=== PATIENT | female | born 1965 | race Caucasian/White ===

== ENCOUNTER → 2018-01-26 | Outpatient (CLI) | payer OTHER ==
[~2018-01-26] MED LIST: HYDR8TAB27 PO; MELO15TA24 PO; OXYC30TA66 PO; SUMA25TA4 PO; TOPI50TA8 PO
[2018-01-26 16:18] LABS: MICROSCOPIC AUTO
[2018-01-26 16:21] LABS: CULTURE INDICATED? YES
== END | disposition home or self-care (01) ==
LOC: STAR 15:20
PROVIDERS: ATTEND Orthopaedic Surgery
DX: Z01.818 Encounter for other preprocedural examination (principal); M16.11 Unilateral primary osteoarthritis, right hip
CPT/HCPCS: 81001; 87081; 87086

== ENCOUNTER 2018-02-03 05:52 | Inpatient (IN) | payer OTHER ==
[~2018-02-03] VITALS: Ht 167.6 cm; Wt 95.5 kg
[2018-02-03] MEDS ORDERED: KETOROLAC 60 MG/2 ML ONE (06:15)
[2018-02-03] MEDS ORDERED: VANCOMYCIN 1,000 MG ONE (06:15)
[2018-02-03] MEDS ORDERED: ROPIvacaine/PF 0.2%, 20 ML ONE (06:15)
[2018-02-03] MEDS ORDERED: SODIUM CHLORIDE 0.9% 100 ML ONE (06:15)
[2018-02-03] MEDS ORDERED: TRANEXAMIC ACID 100 MG/ML, 10ML ONE (06:15)
[2018-02-03] MEDS ORDERED: EPINEPHRINE 1 MG/ML, 1ML ONE (06:16)
[2018-02-03] MEDS ORDERED: LACTATED RINGERS 1,000 ML IV SCH (06:18)
[2018-02-03 06:19] VITALS: BP 114/78
[2018-02-03] MEDS ORDERED: MIDAZOLAM 1 MG/ML, 2ML ONE (06:32)
[2018-02-03] MEDS ORDERED: FENTANYL PF 250 MCG/5ML ONE (06:32)
[2018-02-03] MEDS ORDERED: OxyconTIN ER 10 MG TAB.ER PO ONE (07:00)
[2018-02-03] MEDS ORDERED: GABAPENTIN 300 MG CAPSULE PO ONE (07:00)
[2018-02-03] MEDS ORDERED: SCOPOLAMINE PATCH, 1.5MG PATCH.TD72 TD ONE (07:00)
[2018-02-03] MEDS ORDERED: ACETAMINOPHEN 500 MG TABLET PO ONE (07:00)
[2018-02-03] MEDS ORDERED: CEFAZOLIN 1,000 MG ONE (07:13)
[2018-02-03] MEDS ORDERED: SUCCINYLCHOLINE 20 MG/ML, 10ML ONE (07:13)
[2018-02-03] MEDS ORDERED: DEXAMETHASONE 4 MG/ML, 1ML ONE (07:13)
[2018-02-03] MEDS ORDERED: ONDANSETRON 2MG/ML, 2ML ONE (07:13)
[2018-02-03] MEDS ORDERED: PROPOFOL 10 MG/ML, 20ML ONE (07:13)
[2018-02-03] MEDS ORDERED: ROCURONIUM 10 MG/ML,10ML ONE (07:13)
[2018-02-03] MEDS ORDERED: hydrALAzine 20 MG/ML, 1ML IV PRN (08:00)
[2018-02-03] MEDS ORDERED: PROMETHAZINE 25 MG/ML, 1ML IV PRN (08:00)
[2018-02-03] MEDS ORDERED: METOCLOPRAMIDE 5 MG/ML, 2ML IV PRN (08:00)
[2018-02-03] MEDS ORDERED: OXYcodone 5 MG/5 ML ORAL.SOL UDC PO PRN (08:00)
[2018-02-03] MEDS ORDERED: LABETALOL 5MG/ML, 20ML IV PRN (08:00)
[2018-02-03] MEDS ORDERED: ALBUTEROL SULFATE 2.5 MG/3 ML NPPB PRN (08:00)
[2018-02-03] MEDS ORDERED: ONDANSETRON 2MG/ML, 2ML IVPush PRN (08:00)
[2018-02-03] MEDS ORDERED: HYDROmorphone 1 MG/ML, 1ML IV PRN (08:00)
[2018-02-03] MEDS ORDERED: MEPERIDINE/PF 25MG/0.5ML IVPush PRN (08:00)
[2018-02-03] MEDS ORDERED: KETOROLAC 30 MG/1 ML IV PRN (08:00)
[2018-02-03] MEDS ORDERED: ZOLPIDEM 5MG TABLET PO PRN (10:00)
[2018-02-03] MEDS ORDERED: ONDANSETRON 2MG/ML, 2ML IV PRN (10:00)
[2018-02-03] MEDS ORDERED: MAGNESIUM HYDROXIDE 8%, 30ML UDC PO PRN (10:00)
[2018-02-03] MEDS ORDERED: PROMETHAZINE 25 MG/ML, 1ML IM PRN (10:00)
[2018-02-03] MEDS ORDERED: ALUMINUM/MAG/SIMETHICONE 30 ML UDC PO PRN (10:00)
[2018-02-03] MEDS ORDERED: PROMETHAZINE 12.5 MG SUPP PR PRN ×2 (10:00→12:00)
[2018-02-03] MEDS ORDERED: ONDANSETRON 4 MG TABLET PO PRN (10:00)
[2018-02-03] MEDS ORDERED: SENNA/DOCUSATE TABLET PO PRN (10:00)
[2018-02-03] MEDS ORDERED: DIAZEPAM 5 MG TABLET PO PRN (10:00)
[2018-02-03] MEDS ORDERED: TRANEXAMIC ACID 1,000 MG in SODIUM CHLORIDE 0.9% 100 ML IVPB ONE (10:00)
[2018-02-03] MEDS ORDERED: BISACODYL 10 MG SUPP PR PRN (10:00)
[2018-02-03] MEDS ORDERED: DIPHENHYDRAMINE 50 MG CAPSULE PO PRN (10:00)
[2018-02-03] MEDS ORDERED: FENTANYL PF 100 MCG/2ML ONE (10:17)
[2018-02-03] MEDS: FENTANYL PF 100 MCG/2ML IV PRN ×2 (10:20→10:33)
[2018-02-03] MEDS ORDERED: OXYcodone 5 MG/5 ML ORAL.SOL UDC ONE (10:39)
[2018-02-03 11:15] VITALS: BP 113/70
[2018-02-03] MEDS ORDERED: HYDROmorphone 2 MG/ML, 1ML ONE ×2 (11:25→19:11)
[2018-02-03] MEDS: HYDROmorphone 1 MG/ML, 1ML IV PRN ×2 (11:30→19:14)
[2018-02-03] MEDS ORDERED: SUMATRIPTAN 25 MG TABLET PO PRN (12:00)
[2018-02-03] MEDS: D5%-0.45% NACL 1,000 ML IV SCH ×2 (12:34→21:02)
[2018-02-03] MEDS: TAMSULOSIN 0.4 MG CAP.ER.24H PO SCH (12:34)
[2018-02-03] MEDS: ACETAMINOPHEN 650 MG/20.3 ML UDC PO SCH ×2 (12:34→18:07)
[2018-02-03] MEDS: KETOROLAC 30 MG/1 ML IV SCH ×2 (12:34→18:07)
[2018-02-03 13:10] VITALS: BP 135/71
[2018-02-03] MEDS: OxyconTIN ER 15 MG TAB.ER PO SCH ×2 (15:31→23:00)
[2018-02-03] MEDS: CEFAZOLIN PMX 2GM/50ML 50 ML IVPB SCH ×2 (15:44→23:08)
[2018-02-03] MEDS: ASPIRIN 81 MG TABLET EC PO SCH (18:07)
[2018-02-03 20:05] VITALS: BP 99/61
[2018-02-03] MEDS ORDERED: TOPIRAMATE 25 MG TABLET PO SCH (21:00)
[2018-02-03] MEDS: DOCUSATE 100 MG CAPSULE PO SCH (21:01)
[2018-02-03] MEDS ORDERED: OxyconTIN ER 10 MG TAB.ER ONE (23:06)
[2018-02-03] MEDS ORDERED: OxyconTIN ER 20 MG TAB.ER ONE (23:07)
[2018-02-04 00:08] VITALS: BP 99/62
[2018-02-04] MEDS: ACETAMINOPHEN 650 MG/20.3 ML UDC PO SCH ×2 (00:13→05:26)
[2018-02-04] MEDS: KETOROLAC 30 MG/1 ML IV SCH ×2 (00:14→05:26)
[2018-02-04] MEDS: HYDROmorphone 2MG TABLET PO PRN ×2 (02:03→05:41)
[2018-02-04 03:05] VITALS: BP 98/60
[2018-02-04] MEDS: D5%-0.45% NACL 1,000 ML IV SCH (03:59)
[2018-02-04] MEDS: ASPIRIN 81 MG TABLET EC PO SCH (05:25)
[2018-02-04] MEDS ORDERED: DEXAMETHASONE 4 MG/ML, 1ML IVPush SCH (06:00)
[2018-02-04] MEDS: OxyconTIN ER 15 MG TAB.ER PO SCH (07:00)
[2018-02-04 07:10] VITALS: BP 92/55
[2018-02-04] MEDS ORDERED: OxyconTIN ER 10 MG TAB.ER ONE (07:12)
[2018-02-04] MEDS ORDERED: OxyconTIN ER 20 MG TAB.ER ONE (07:13)
[2018-02-04] MEDS: DOCUSATE 100 MG CAPSULE PO SCH (07:54)
[2018-02-04] MEDS: TAMSULOSIN 0.4 MG CAP.ER.24H PO SCH (07:54)
[2018-02-04] MEDS ORDERED: TOPIRAMATE 100 MG TABLET PO SCH (09:00)
[2018-02-04] MEDS ORDERED: MULTIVITAMINS/MINERALS TABLET PO SCH (09:00)
[2018-02-04] MEDS ORDERED: HYDROmorphone 2MG TABLET PO PRN (10:00)
[2018-02-04] MEDS ORDERED: HYDR8TAB27 PO (10:09)
[2018-02-04 10:24] VITALS: BP 119/74
== END 2018-02-04 10:50 | disposition home or self-care (01) | DRG 470 ==
LOC: ORIP 05:52 → 4NOR 11:05 → DCLOUNGE 02-04 10:30
PROVIDERS: ADMIT Orthopaedic Surgery; ATTEND Orthopaedic Surgery
PROC: 0SR90JZ Replacement of Right Hip Joint with Synthetic Substitute, Open Approach (ICD-10-PCS; principal; 2018-02-03 07:30)
DX: M16.11 Unilateral primary osteoarthritis, right hip (principal); F17.210 Nicotine dependence, cigarettes, uncomplicated; G43.909 Migraine, unspecified, not intractable, without status migrainosus; G89.29 Other chronic pain; Z88.0 Allergy status to penicillin
CPT/HCPCS: 36415; 72170; 85014; 85018; 86850; 86900; C1713; J0171; J0690; J1100; J1170; J1885; J2250; J2405; J2704; J2795; J3010; J3370; C1776; J0330; J7120